=== PATIENT | male | born 1945 | race Caucasian/White ===

== ENCOUNTER 2022-09-18 06:44 | Day surgery (SDC) | payer MEDICARE, MEDICAID ==
[2022-09-11 08:32] LABS: BASOPHILS # (AUTO) 0.1 X10'3 (0-0.2); BASOPHILS % (AUTO) 0.7 % (0-1); EOSINOPHILS # (AUTO) 0.2 X10'3 (0-0.9); EOSINOPHILS % (AUTO) 1.7 % (0-6); HEMATOCRIT 43.7 % (42.0-52.0); LYMPHOCYTES # (AUTO) 2.5 X10'3 (1.1-4.8); LYMPHOCYTES % (AUTO) 28.4 % (21-51); MEAN CORPUSCULAR HEMOGLOBIN 33.4 PG (27.0-31.0); MEAN CORPUSCULAR HGB CONC 34.3 g/dL (33.0-36.5); MEAN CORPUSCULAR VOLUME 97.4 FL (78-98); MEAN PLATELET VOLUME 7.8 FL (7.4-10.4); MONOCYTES # (AUTO) 0.7 X10'3 (0-0.9); MONOCYTES % (AUTO) 8.1 % (2-12); NEUTROPHILS # (AUTO) 5.4 X10'3 (1.8-7.7); NEUTROPHILS % (AUTO) 61.1 % (42-75); PLATELET COUNT 175 X10'3 (140-440); RED BLOOD COUNT 4.49 X10'6 (4.70-6.10); RED CELL DISTRIBUTION WIDTH 12.8 % (11.5-14.5); WHITE BLOOD COUNT 8.9 X10'3 (4.5-11.0)
[2022-09-11 08:43] LABS: APTT 24 SECONDS (22-32)
[2022-09-11 09:07] LABS: ALANINE AMINOTRANSFERASE 31 U/L (12-78); ALBUMIN 4.2 G/DL (3.4-5.0); ALBUMIN/GLOBULIN RATIO 1.2 (1.1-1.5); ALKALINE PHOSPHATASE 121 IU/L (46-116); ANION GAP 10 (8-16); ASPARTATE AMINO TRANSFERASE 16 U/L (10-37); BILIRUBIN,TOTAL 0.7 MG/DL (0.1-1.0); BLOOD UREA NITROGEN 18 MG/DL (7-18); BUN/CREATININE RATIO 18.9 (10.0-20.0); CALCIUM 9.8 MG/DL (8.5-10.1); CHLORIDE 103 MMOL/L (99-107); CREATININE 0.95 MG/DL (0.60-1.10); GLUCOSE 144 MG/DL (70-104); POTASSIUM 4.4 MMOL/L (3.5-5.1); SODIUM 140 MMOL/L (135-145); TOTAL CARBON DIOXIDE 27.2 MMOL/L (24-32); TOTAL PROTEIN 7.6 G/DL (6.4-8.2); eGFR 77 ML/MIN
[2022-09-18] VITALS (11 sets, daily range): BP systolic 91–127; BP diastolic 48–77; PULSE 52–86; RESP 14–15; TEMP 97.1; O2SAT 95–97
[~2022-09-18] VITALS: Ht 175.3 cm; Wt 79.7 kg
[~2022-09-18 06:44] MED LIST: LISI40TA13 PO; MULT-620 PO; OMEP20CA15 PO
[2022-09-18] MEDS ORDERED: diphenhydrAMINE 25mg capsule PO PRN (07:05)
[2022-09-18] MEDS ORDERED: normal saline 1,000 ML IV SCH (07:05)
[2022-09-18] MEDS ORDERED: LORazepam 0.5 MG tablet PO PRN (07:05)
[2022-09-18] MEDS ORDERED: nitroGLYCERIN 0.4mg SUBLingual tab SL PRN (07:05)
[2022-09-18] MEDS ORDERED: dextrose 50%-water 50ml dispensing syringe IV PRN ×2 (07:15)
[2022-09-18] MEDS ORDERED: MESSAGE TO PHARMACY PO ONE (07:15)
[2022-09-18] MEDS ORDERED: DEXTROSE 15 GM of carb/4 tabs (each vial/BOTTLE has 4 tablets) PO PRN ×2 (07:15)
[2022-09-18] MEDS ORDERED: insulin Lispro (HumaLOG) vial - multi-dose SQ SCH (07:15)
[2022-09-18] MEDS ORDERED: glucagon, human recombinant 1mg kit SUBCUT PRN (07:15)
[2022-09-18] MEDS ORDERED: iohexol 350MG/ML 100ml bottle IV ONE (07:25)
[2022-09-18] MEDS ORDERED: iohexol 350 MG/ML 50ML vial IV ONE (07:25)
[2022-09-18] MEDS ORDERED: LIDOcaine 1% (10mg/ml)w/preservative inj. 20ml MDV ONE (07:25)
[2022-09-18] MEDS ORDERED: midazolam 1 mg/ML 2ml injection ONE (07:25)
[2022-09-18] MEDS ORDERED: fentaNYL/PF 50MCG/1 ML 2ML syringe ONE (07:25)
[2022-09-18] MEDS ORDERED: ATOR40TA72 PO (07:32)
[2022-09-18] MEDS ORDERED: FLO0.4C (07:32)
[2022-09-18] MEDS ORDERED: FAMO20TA8 PO (07:32)
[2022-09-18] MEDS ORDERED: METF-1203 PO (07:32)
[2022-09-18] MEDS ORDERED: OLME20TA23 PO (07:32)
[2022-09-18] MEDS ORDERED: HYDROcodone/acetaminophen 10/325mg tab PO PRN (09:40)
[2022-09-18] MEDS ORDERED: OXAZEpam 15mg capsule PO PRN (09:40)
[2022-09-18] MEDS ORDERED: HYDROcodone/acetaminophen 5mg/325mg tablet PO PRN (09:40)
[2022-09-18] MEDS ORDERED: proCHLORperazine 10 MG/2 ml inj IV PRN (09:40)
[2022-09-18] MEDS ORDERED: ondansetron/PF 4mg/2ml inj IV PRN (09:40)
[2022-09-18] MEDS ORDERED: normal saline 1000ml 1,000 ML IV SCH (09:40)
[2022-09-18] MEDS ORDERED: insulin glargine (Lantus) pen - multi-dose SQ SCH (21:00)
== END 2022-09-18 15:00 | disposition home or self-care (01) ==
LOC: SSTAY O 06:44
PROVIDERS: ATTEND Internal Medicine Cardiovascular Disease
DX: R94.39 Abnormal result of other cardiovascular function study (principal); I25.10 Atherosclerotic heart disease of native coronary artery without angina pectoris; E11.9 Type 2 diabetes mellitus without complications; I10 Essential (primary) hypertension; E78.5 Hyperlipidemia, unspecified; F40.240 Claustrophobia; M47.819 Spondylosis without myelopathy or radiculopathy, site unspecified; M54.30 Sciatica, unspecified side; K21.9 Gastro-esophageal reflux disease without esophagitis; Z79.899 Other long term (current) drug therapy; Z87.891 Personal history of nicotine dependence; Z79.84 Long term (current) use of oral hypoglycemic drugs; Z79.01 Long term (current) use of anticoagulants
CPT/HCPCS: 36415; 71046; 80053; 82948; 85025; 85610; 85730; 93005; 93458; 99152; J1644; J1815; J2250; J3010; J3490; J7030; Q0163; Q9967; 99153; A6258; C1760